=== PATIENT | male | born 1955 | race Caucasian/White ===

== ENCOUNTER → 2019-06-10 14:21 | Outpatient (CLI) | payer OTHER, SELFPAY ==
--- NOTE | ~2019-06-10 | XR_ITS ---
EXAMINATION: XR abdomen/kub 1V EXAM DATE: 06/10/2019 15:11 INDICATION: Gross hematuria. TECHNIQUE: Frontal projection of the upper abdomen, frontal projection lower abdomen/pelvis for inter pretation. There is no prior study for comparison. FINDINGS: Calcifications in the pelvis are believed to be phleboliths. There is expected amount of co lonic stool and gas. No small bowel dilation, nonobstructive bowel gas pattern. There are vasectom y clips. There is no organomegaly suspected. There are mild bony degenerative changes. Lung bases unremarkable. IMPRESSION: Unremarkable abdomen x-ray exam. Reviewed, dictated and finalized at location A.
--- NOTE | ~2019-06-10 | CT_ITS ---
EXAMINATION: CT abdomen pelvis wo/w con EXAM DATE: 06/10/2019 15:10 INDICATION: Gross hematuria. TECHNIQUE: Spiral CT of the abdomen and pelvis was performed without contrast. The patient was then injected with small bolus intravenous Omnipaque 350, followed by delay of approximately 10 minutes to allow collecting system to opacify. A post contrast scan abdomen and pelvis was performed during inj ection of remaining contrast. A total of 130 cc intravenous contrast was administered. The dose-cedric th product (DLP) for this examination was 1426.55 mGy-cm. The exposure was tailored according to pat ient size (auto mA exposure control), and iterative reconstruction (ASIR) was used as additional dose reduction technique. There is no prior study for comparison. FINDINGS: There is no hydronephrosis or nephrolithiasis. The kidneys enhance symmetrically. There a re no suspicious renal lesions. The calyces and opacified portions of ureters are unremarkable, with out filling defects or focal suspicious strictures. The bladder is unremarkable. There is mild prost atomegaly. There are vasectomy clips. The liver, spleen, adrenal glands and pancreas are unremarkable. Gallbladder is unremarkable. No bi liary obstruction. There is no retroperitoneal or pelvic lymphadenopathy. There is mild scattered arteriosclerotic disease. The stomach and small bowel are unremarkable. There is expected amount of colonic stool. No free i ntraperitoneal gas. The heart is normal in size. There are no pericardial or pleural effusions. T he lung bases are unremarkable. There are no osteoblastic or osteolytic lesions identified. IMPRESSION: 1. Mild prostatomegaly. Reviewed, dictated and finalized at location A. IMPRESSION: 1. Mild prostatomegaly.
[2019-06-10 14:48] LABS: Estimated Glomerular Filt Rate > 60
== END ==
PROVIDERS: Visit Provider Urology
DX: R31.0 Gross hematuria (principal); N40.0 Benign prostatic hyperplasia without lower urinary tract symptoms
CPT/HCPCS: 36415; 74018; 74178; Q9967

== ENCOUNTER 2021-06-09 10:05 | Emergency (ER) | payer OTHER, SELFPAY ==
--- NOTE | 2021-06-09 10:09 | ED.URI ---
HPI - URI/Sore Throat General Chief Complaint: Upper Respiratory Infection Stated Complaint: cough,congestion Time Seen by Provider: 06/09/21 10:08 Source: patient Mode of arrival: ambulatory Limitations: no limitations History of Present Illness HPI Narrative: Mr. Beatty is a 65-year-old male patient presenting to the clinic today with complaints of cough and congestion since Sunday. He reports he is coughing up yellow phlegm. Denies any fever but feels as though he has had chills. 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 No known exposure to anyone with Covid, flu, or strep. Reports that he coughs his throat and chest is hurting. Otherwise he denies any shortness of breath or chest pain. MD elicited complaint: cough and nasal congestion Related Data Home Medications Medication Instructions Recorded Confirmed aspirin 81 mg DAILY 06/09/21 06/09/21 hydrochlorothiazide 25 mg PO DAILY 06/09/21 06/09/21 simvastatin 40 mg DAILY 06/09/21 06/09/21 Review of Systems Review of Systems: Pertinent positives per HPI. Patient denies any fever, rash, headache, visual changes, dizziness, sore throat, chest pain, palpitations, nausea, vomiting, diarrhea, constipation, abdominal pain, or any urinary issues. PMFSH Comments At the time of my signature, I reviewed and agree with the nursing past medical, surgical, social, and family history. There is no relevant family history pertinent to the patient complaint. Exam Narrative: General: Well-developed, well nourished, mildly ill-appearing Head: Normocephalic, atraumatic Eyes: Pupils equally round and reactive to light bilaterally, EOM intact, sclera and conjunctive clear, no discharge, lids normal Ears: TMs intact and clear, ear canals clear, no drainage, grossly hearing normal. Nose: Nares patent, clear nasal discharge, moderate inflammation, no sinus tenderness. Mouth: Oral pharynx without lesions or masses, good dentition, MMM. Postnasal drip Neck: Supple, trachea midline, no enlargement of anterior or posterior cervical nodes, no thyroid masses or goiter palpable. Cardio: Regular rate and rhythm, s1 and s2 normal, no murmur appreciated. Resp: Faint wheezing in the lower bases of the lungs posteriorly otherwise clear, no rhonchi, rales, or rubs Course Course Emergency Course: Portions of this record may have been created with voice recognition software. Level of Care: Express Care Visit Vital Signs Vital signs: Vital Signs Temperature 37.4 C 06/09/21 10:17 Pulse Rate 110 H 06/09/21 10:17 Respiratory Rate 18 06/09/21 10:17 Blood Pressure 149/87 H 06/09/21 10:17 Pulse Oximetry 96 06/09/21 10:17 Temperature 37.4 C 06/09/21 10:17 Pulse Rate 110 H 06/09/21 10:17 Respiratory Rate 18 06/09/21 10:17 Blood Pressure 149/87 H 06/09/21 10:17 Pulse Oximetry 96 06/09/21 10:17 Vital signs reviewed MDM - URI/Sore Throat MDM Narrative Medical decision making narrative: At the time of assessment patient is resting comfortably on the exam table. He reports nasal congestion and productive cough. Has had chills without fever. Lung sounds faint wheezing in the lower posterior bases otherwise clear. I suspect acute bronchitis. We will go ahead and treat with a prescription of prednisone, azithromycin, Tessalon Perles, and an albuterol inhaler. Supportive measures was discussed with patient he voiced understanding. Differential Diagnosis Differential diagnosis: Likely upper respiratory infection, croup, otitis media, sinusitis, viral infection, bronchitis, influenza, pharyngitis and other (Pneumonia, flu, Covid) Discharge Plan Discharge Clinical Impression: Bronchitis Patient Disposition: Home, Self-Care Condition: Stable Instructions: Antibiotic Form, Acute Bronchitis (ED) Additional Instructions: Take prescription medications only as prescribed Increase fluids and stay well hydrated Tylenol/motrin for pain/fever
[2021-06-09 10:17] VITALS: BP 149/87; PULSE 110; RESP 18; TEMP 37.4; O2SAT 96
== END 2021-06-09 10:26 | disposition home or self-care (01) ==
PROVIDERS: Emergency Provider Nurse Practitioner Family
DX: J40 Bronchitis, not specified as acute or chronic (principal); I25.10 Atherosclerotic heart disease of native coronary artery without angina pectoris; E78.00 Pure hypercholesterolemia, unspecified; I10 Essential (primary) hypertension
CPT/HCPCS: 99213; G0463